=== PATIENT | female | born 1990 | race Two or more races ===

== ENCOUNTER 2018-11-19 00:22 | Emergency (ER) | payer BC ==
[2018-11-19 00:30] VITALS: BP 122/73
[2018-11-19] MEDS ORDERED: ONDANSETRON HCL INJ/PF 4 MG/2 ML SDV IV ONE (01:18)
[2018-11-19] MEDS ORDERED: MORPHINE SULFATE 10 MG/ML INJ IV ONE (01:18)
[2018-11-19] MEDS ORDERED: NORMAL SALINE 500 ML IV ONE (01:18)
--- NOTE | 2018-11-19 01:22 | ER Document Report ---
ED General - General Chief Complaint: Epigastric Pain Stated Complaint: STOMACH PAIN Time Seen by Provider: 11/19/18 01:12 Primary Care Provider: ESCOBAR HERNANDEZ MD [ACTIVE STAFF] - Follow up in 3-5 days Notes: Patient is a 28-year-old female presents with complaint of sudden onset severe epigastric pain approximately 20 minutes arrival to the ER. She never had anything like this before. She vomited twice. No blood in her emesis. No diarrhea. No history of similar pains in the past. No history of abdominal s urgeries. No alcohol use last 48 hours. She does not take any medications and is otherwise healthy. No medical allergies. Nothing makes the pain better or worse. The only thing she had eaten tonight was a bowl of cereal. TRAVEL OUTSIDE OF THE [place] IN LAST 30 DAYS: No - Related Data Allergies/Adverse Reactions: No Known Allergies Allergy (Unverified 09/12/13 11:48) Past Medical History - Social History Smoking Status: Never Smoker Frequency of alcohol use: None Drug Abuse: None Family History: Reviewed & Not Pertinent Review of Systems - Review of Systems Notes: My Normal Review Basic REVIEW OF SYSTEMS: CONSTITUTIONAL : Denies fever, chills, or sweats. Denies recent illness. Cardiovascular: No chest pain RESPIRATORY: Denies cough, cold, or chest congestion. Denies shortness of breath, difficulty breathing, or wheezing. GASTROINTESTINAL: Epigastric abdominal pain. Has vomiting. Denies constipati on. GENITOURINARY: Denies difficulty urinating, painful urination, burning, frequency, or blood in urine. MUSCULOSKELETAL: Denies neck or back pain or joint pain or swelling. SKIN: Denies rash or skin lesions. ALL OTHER SYSTEMS REVIEWED AND NEGATIVE. Physical Exam - Vital signs Vitals: Temp Pulse Resp BP Pulse Ox 97.8 F 71 22 H 122/73 99 11/19/18 00:27 11/19/18 00:27 11/19/18 00:27 11/19/18 00:11/19/18 00:27 - Notes Notes: General Appearance: Well nourished, alert, cooperative, no acute distress, mild obvious discomfort. Vitals: reviewed, See vital signs table. Eyes: PERRL, EOMI, Conjuctiva clear Lungs: No wheezing, No rales, No rhonci, No accessory muscle use, good air exchange bilaterally. Heart: Normal rate, Regular rythm, No murmur, no rub Abdomen: Normal BS, soft, No rigidity, and epigastric pain to palpation. Her abdomen is nontender., No guarding, no rebound, no abdominal masses, no organomegaly Extremities: good pulses in all extremities Neuro: speech clear, oriented x 3, normal affect, responds appropriately to questions. Course - Re-evaluation Re-evalutation: 11/19/18 03:14 I spoke patient's pain is either related to biliary colic or related to gastritis. I will have her start taking Pepcid and avoid coffee. She does have some gallstones on ultrasound. There is no evidence of inflammation or infection of the gallbladder on ultrasound. No evidence of obstruction. She had very slight elevation in AST and ALT which could be due to the be related to her having a fatty liver on ultrasound. I explained this to her informed her that she does have fatty liver recommend weight loss. Patient agreeable with this. I talked to her and informed her that she does have gallstones and this could be causing her pain however she does not require emergent cholecystectomy at this time. Her pain is improved and she looks well at this time. I informed her that she should follow-up with surgery clinic regards for further work-up and potential elective removal of her gallbladder. Patient is agreeable to this. I encouraged her return to ER anytime if she has worsening recurrent pain, intractable vomiting, fevers, or feels unwell in any way. Jennifer ent agrees with plan and will be discharged home. Dictation of this chart was performed using voice recognition software; therefore, there may be some unintended grammatical errors. - Vital Signs Vital signs: Temp Pulse Resp BP Pulse Ox 97.8 F 71 22 H 122/73 99 11/19/18 00:27 11/19/18 00:27 11/19/18 00:27 11/19/18 00:27 11/19/18 00:27 - Laboratory Result Diagrams: 11/19/18 01:50 11/19/18 01:50 Laboratory results interpreted by me: 11/19/18 11/19/18 01:50 01:50 WBC 12.9 H Seg Neutrophils % 81.7 H Lymphocytes % 12.4 L Absolute Neutrophils 10.6 H AST 67 H ALT 56 H Discharge - Discharge Clinical Impression: Abdominal pain Qualifiers: Abdominal location: epigastric Qualified Code(s): R10.13 - Epigastric pain Cholelithiasis Qualifiers: Cholelithiasis location: gallbladder Cholecystitis presence: without cholecystitis Biliary obstruction: without biliary obstruction Qualified Code(s): K80.20 - Calculus of gallbladder without cholecystitis without obstruction Condition: Good Disposition: HOME, SELF-CARE Additional Instructions: Your ultrasound of the gallbladder did show some stones in gallbladder. There is no evidence of infection or inflammation of the gallbladder at this time. There is no evidence of obstruction of the gallbladder. You therefore do not need it emergently taken out however you should follow-up with the surgery clinic for further evaluation to determine it needs to be taken out electively. Please call the surgery clinic. The number for the surgery clinic is under the name Escobar Hernandez in your discharge paperwork. Please still have a low threshold to return to the ER if you having recurring pains, intractable vomiting, fevers, or if you feel that you are worsening the way. Please avoid all fatty and fried foods. Please take [id number] medicine such as Pepcid to help reduce the amount of acid in your stomach. Please avoid coffee and NSAID medications such as ibuprofen, Motrin, Aleve, Advil. It is safe to take Tylenol. Referrals: ESCOBAR HERNANDEZ MD [ACTIVE STAFF] - Follow up in 3-5 days
[2018-11-19 02:01] LABS: ABSOLUTE EOSINOPHILS # (AUTO) 0.1 10^3/uL (0.0-0.6); ABSOLUTE LYMPHOCYTES (AUTO) 1.6 10^3/uL (0.5-4.7); ABSOLUTE MONOCYTES (AUTO) 0.6 10^3/uL (0.1-1.4); ABSOLUTE NEUT (AUTO) 10.6 10^3/uL (1.7-8.2); BASOPHILS % (AUTO) 0.3 % (0-2); EOSINOPHILS % (AUTO) 0.9 % (0-6); HEMATOCRIT 37.6 % (36.0-47.0); HEMOGLOBIN 12.7 g/dL (12.0-15.5); LYMPHOCYTES % (AUTO) 12.4 % (13-45); MEAN CORPUSCULAR HEMOGLOBIN 28.9 pg (27.0-33.4); MEAN CORPUSCULAR HGB CONC 33.8 g/dL (32.0-36.0); MEAN CORPUSCULAR VOLUME 86 fl (80-97); MONOCYTES % (AUTO) 4.7 % (3-13); PLATELET COUNT 233 10^3/uL (150-450); RED CELL DISTRIBUTION WIDTH 13.3 % (11.5-14.0); SEGMENTED NEUTROPHILS % (AUTO) 81.7 % (42-78); TOTAL CELLS COUNTED % (AUTO) 100 %; WHITE BLOOD COUNT 12.9 10^3/uL (4.0-10.5)
[2018-11-19 02:18] LABS: ALANINE AMINOTRANSFERASE 56 U/L (9-52); ALBUMIN 3.9 g/dL (3.5-5.0); ALKALINE PHOSPHATASE 75 U/L (38-126); ANION GAP 9 (5-19); ASPARTATE AMINO TRANSFERASE 67 U/L (14-36); BILIRUBIN,DIRECT 0.2 mg/dL (0.0-0.4); BILIRUBIN,TOTAL 0.2 mg/dL (0.2-1.3); BLOOD UREA NITROGEN 14 mg/dL (7-20); CALCIUM 9.1 mg/dL (8.4-10.2); CARBON DIOXIDE 29 mmol/L (22-30); CHLORIDE 105 mmol/L (98-107); GLUCOSE 106 mg/dL (75-110); POTASSIUM 4.1 mmol/L (3.6-5.0); SODIUM 142.6 mmol/L (137-145)
--- NOTE | 2018-11-19 02:55 | RADIOLOGY REPORT (SQ) ---
EXAM DESCRIPTION: US ABDOMEN DOPPLER LIMITED COMPLETED DATE/TME: 11/19/2018 01:17 CLINICAL HISTORY: 28 years Female, epigastric pain. Do RUQ ultrasound Comparison: None. LIMITATIONS: None. FINDINGS: Cholelithiasis, negative sonographic Cadena's test, moderate hepatic steatosis, a 0.3-cm diameter common bile duct, no intrahepatic ductal dilation, hepatopetal patent flow of the portal vein, 11-cm right kidney, partially obscured pancreas, visualized vasculature/abdominal aorta, and no significant ascites appear otherwise unremarkable. IMPRESSION: No acute findings. Cholelithiasis. Hepatic steatosis.
[2018-11-19] MEDS ORDERED: ONDANSETRON ODT 4 MG TAB (6 TAB/ER DISP) PO PRN (03:13)
== END 2018-11-19 03:48 | disposition home or self-care (01) ==
LOC: ER 00:22
DX: K80.20 Calculus of gallbladder without cholecystitis without obstruction (principal); R10.13 Epigastric pain; R11.10 Vomiting, unspecified
CPT/HCPCS: 99284; 96374; 96375; 36415; 83690; 85025; 80053; 76705; 93976; J2270; J2405; J7040

== ENCOUNTER 2019-03-22 22:24 | Emergency (ER) | payer BC ==
[2019-03-22] MEDS ORDERED: ONDANSETRON 4 MG TAB.RAPDIS PO ONE (22:47)
[2019-03-22] MEDS ORDERED: KETOROLAC TROMETHAMINE 60 MG/2 ML SDV IM ONE (22:47)
--- NOTE | 2019-03-22 22:49 | ER Document Report ---
ED Medical Screen (RME) - General Chief Complaint: Epigastric Pain Stated Complaint: UPPER GASTRIC PAIN Time Seen by Provider: 03/22/19 22:45 Mode of Arrival: Ambulatory Information source: Patient Notes: 29-year-old female presents emergency department with complaints of epigastric pain back pain. Reports started after she had a sandwich and a beer earlier today.. Reports she was evaluated in the past for gallstones. She did follow- up with surgeon but they thought the gallstones were brought on by her diet medication she was taking at that time. Patient reports she quit taking it quit having the symptoms. No complaints of fever or diarrhea. Patient reports she is currently on her menses and has Implanon, denies . Dictation of this chart was performed using voice recognition software; therefore, there may be some unintended grammatical errors. I have greeted and performed a rapid initial assessment of this patient. A comprehensive ED assessment and evaluation of the patient, analysis of test results and completion of the medical decision making process will be conducted by additional ED providers. TRAVEL OUTSIDE OF THE [place] IN LAST 30 DAYS: No - Related Data Allergies/Adverse Reactions: No Known Allergies Allergy (Unverified 09/12/13 11:48) Past Medical History Renal/ Medical History: Denies: Hx Peritoneal Dialysis Physical Exam - Vital signs Vitals: Temp Pulse Resp BP Pulse Ox 98.1 F 88 16 135/71 H 100 03/22/19 22:30 03/22/19 22:30 03/22/19 22:30 03/22/19 22:30 03/22/19 22:30 Course - Vital Signs Vital signs: Temp Pulse Resp BP Pulse Ox 98.1 F 88 16 135/71 H 100 03/22/19 22:30 03/22/19 22:30 03/22/19 22:30 03/22/19 22:30 03/22/19 22:30
[2019-03-22 23:13] LABS: ABSOLUTE EOSINOPHILS # (AUTO) 0.2 10^3/uL (0.0-0.6); ABSOLUTE LYMPHOCYTES (AUTO) 2.1 10^3/uL (0.5-4.7); ABSOLUTE MONOCYTES (AUTO) 0.8 10^3/uL (0.1-1.4); ABSOLUTE NEUT (AUTO) 8.7 10^3/uL (1.7-8.2); BASOPHILS % (AUTO) 0.4 % (0-2); EOSINOPHILS % (AUTO) 2.1 % (0-6); HEMATOCRIT 39.7 % (36.0-47.0); HEMOGLOBIN 13.2 g/dL (12.0-15.5); LYMPHOCYTES % (AUTO) 17.7 % (13-45); MEAN CORPUSCULAR HEMOGLOBIN 28.3 pg (27.0-33.4); MEAN CORPUSCULAR HGB CONC 33.2 g/dL (32.0-36.0); MEAN CORPUSCULAR VOLUME 85 fl (80-97); MONOCYTES % (AUTO) 6.4 % (3-13); PLATELET COUNT 281 10^3/uL (150-450); RED BLOOD COUNT 4.67 10^6/uL (3.72-5.28); RED CELL DISTRIBUTION WIDTH 13.5 % (11.5-14.0); SEGMENTED NEUTROPHILS % (AUTO) 73.4 % (42-78); TOTAL CELLS COUNTED % (AUTO) 100 %; WHITE BLOOD COUNT 11.9 10^3/uL (4.0-10.5)
[2019-03-22 23:16] LABS: APPEARANCE,URINE SLIGHTLY-CLOUDY; BILIRUBIN,URINE NEGATIVE (NEGATIVE); COLOR,URINE YELLOW; GLUCOSE, URINE NEGATIVE (NEGATIVE); KETONES,URINE NEGATIVE (NEGATIVE); LEUKOCYTE ESTERASE,URINE NEGATIVE (NEGATIVE); NITRITE,URINE NEGATIVE (NEGATIVE); PROTEIN,URINE NEGATIVE (NEGATIVE); URINE SPECIFIC GRAVITY 1.026
[2019-03-22 23:27] LABS: ALBUMIN 4.4 g/dL (3.5-5.0); ALKALINE PHOSPHATASE 82 U/L (38-126); ANION GAP 11 (5-19); ASPARTATE AMINO TRANSFERASE 42 U/L (14-36); BILIRUBIN,DIRECT 0.2 mg/dL (0.0-0.4); BILIRUBIN,TOTAL 0.2 mg/dL (0.2-1.3); BLOOD UREA NITROGEN 13 mg/dL (7-20); CALCIUM 9.3 mg/dL (8.4-10.2); CARBON DIOXIDE 29 mmol/L (22-30); CHLORIDE 100 mmol/L (98-107); GLUCOSE 119 mg/dL (75-110); POTASSIUM 4.1 mmol/L (3.6-5.0)
--- NOTE | 2019-03-22 23:53 | RADIOLOGY REPORT (SQ) ---
EXAM DESCRIPTION: US ABDOMEN LIMITED COMPLETED DATE/TME: 03/22/2019 22:47 CLINICAL HISTORY: 29 years, Female, epigastric back pain COMPARISON: Prior study from 11/19/2018 TECHNIQUE: Axial 2-D grayscale images of the abdomen were obtained. Doppler was utilized. LIMITATIONS: None. FINDINGS: Visualized portions of the pancreas appear normal in echogenicity. Abdominal aortic measurements are as follows: Proximal: 2.2 cm Mid: 2.3 cm Distal: 2.0 cm Visualized portions of the IVC appear normal. The liver is diffusely echogenic. It measures 20.6 cm in length. Antegrade flow is documented within the main portal vein. Gallbladder wall thickness measures 2 mm. Gallstones are noted. Sonographic Cadena sign was negative. Common bile duct and measures 5 mm. Right kidney measures 11.3 cm in length. No hydronephrosis. IMPRESSION: Cholelithiasis without sonographic evidence of acute cholecystitis. Echogenic liver, suggestive of hepatic steatosis. copyright 2010 [employer]- All Rights Reserved
--- NOTE | 2019-03-23 02:16 | ER Document Report ---
ED GI/ - General Chief Complaint: Epigastric Pain Stated Complaint: UPPER GASTRIC PAIN Time Seen by Provider: 03/22/19 22:45 Primary Care Provider: [facility] [Provider Group] - 03/25/19 Mode of Arrival: Ambulatory Notes: Patient is a 29-year-old female that comes emergency department for chief complaint of sharp pain in the upper abdomen after eating dinner along with a episode of vomiting. She states that she was seen in the past and referred to general surgery because she had known gallstones. She states now the pain is actually completely resolved and she has no current symptoms. She denies fever/chills. She states that she is only had one other episode like this in the past. She denies , history of abdominal surgery, daily medications. TRAVEL OUTSIDE OF THE [place] IN LAST 30 DAYS: No - Related Data Allergies/Adverse Reactions: No Known Allergies Allergy (Unverified 09/12/13 11:48) Past Medical History - General Information source: Patient - Social History Smoking Status: Never Smoker Frequency of alcohol use: None Drug Abuse: None Lives with: Family Family History: Reviewed & Not Pertinent Patient has suicidal ideation: No Patient has homicidal ideation: No Renal/ Medical History: Denies: Hx Peritoneal Dialysis Surgical Hx: Negative - Immunizations Immunizations up to date: Yes Hx Diphtheria, Pertussis, Tetanus Vaccination: Yes Review of Systems - Review of Systems Constitutional: No symptoms reported EENT: No symptoms reported Cardiovascular: No symptoms reported Respiratory: No symptoms reported Gastrointestinal: See HPI Genitourinary: No symptoms reported Female Genitourinary: No symptoms reported Musculoskeletal: No symptoms reported Skin: No symptoms reported Hematologic/Lymphatic: No symptoms reported Neurological/Psychological: No symptoms reported Physical Exam - Vital signs Vitals: Temp Pulse Resp BP Pulse Ox 98.1 F 88 16 135/71 H 100 03/22/19 22:30 03/22/19 22:30 03/22/19 22:30 03/22/19 22:30 03/22/19 22:30 - Notes Notes: GENERAL: Alert, interacts well. No acute distress. HEAD: Normocephalic, atraumatic. EYES: Pupils equal, round, and reactive to light. Extraocular movements intact. ENT: Oral mucosa moist, tongue midline. Oropharynx unremarkable. Airway patent. NECK: Full range of motion. Supple. Trachea midline. LUNGS: Clear to auscultation bilaterally, no wheezes, rales, or rhonchi. No respiratory distress. HEART: Regular rate and rhythm. No murmur ABDOMEN: Soft, non-tender. Non-distended. Bowel sounds present in all 4 quadrants. GENITOURINARY: Deferred EXTREMITIES: Moves all 4 extremities spontaneously. No edema, normal radial and dorsalis pedis pulses bilaterally. No cyanosis. BACK: no cervical, thoracic, lumbar midline tenderness. No saddle anesthesia, normal distal neurovascular exam. Moves all extremities in full range of motion. NEUROLOGICAL: Alert and oriented x3. Normal speech. Cranial nerves II through XII grossly intact. PSYCH: Normal affect, normal mood. SKIN: Warm, dry, normal turgor. No rashes or lesions noted. Course - Re-evaluation Re-evalutation: Patient states she was seen in the office although I do not see a visit listed to the surgical clinic. She states that she has not been scheduled for surgery yet. She does have gallstones on the ultrasound today but no pericholecystic fluid or obstructive findings. CBC shows mild leukocytosis which is nonspecific given her vomiting, also nonspecific given she has a completely nontender abdomen. She has no current symptoms. Lipase unremarkable, chemistry unremark able, urinalysis shows some blood but patient states she is currently on her menstrual cycle and I suspect there is a contamination component. Patient does not have flank pain. I discussed with patient. Patient states she is interested in staying and having surgery because of her repeat symptoms. I did discuss with Dr. Chandler, general surgeon, he states he is willing to accept the patient but he does advise that because there is a long list of patients waiting for the operating room that patient might have an extended wait. I did provide this detail with patient and she states that she will instead take medication for symptom management and follow-up with the surgical clinic as her preferred option. Patient is able to tolerate p.o. now without any difficulty. She was provided with symptom management in case she has this, I did discuss return precautions. Dr. Chandler was updated. - Vital Signs Vital signs: Temp Pulse Resp BP Pulse Ox 98.3 F 73 16 119/66 100 03/23/19 02:41 03/23/19 02:41 03/22/19 22:30 03/23/19 02:41 03/23/19 02:41 - Laboratory Result Diagrams: 03/22/19 23:00 03/22/19 23:00 Laboratory results interpreted by me: 03/22/19 03/22/19 03/22/19 23:00 23:00 23:00 WBC 11.9 H Absolute Neuts (auto) 8.7 H Glucose 119 H AST 42 H Urine Blood LARGE H Urine Urobilinogen 2.0 H Discharge - Discharge Clinical Impression: Cholelithiasis Qualifiers: Cholelithiasis location: gallbladder Cholecystitis presence: without cholecystitis Biliary obstruction: without biliary obstruction Qualified Code(s): K80.20 - Calculus of gallbladder without cholecystitis without obstruction Condition: Stable Disposition: HOME, SELF-CARE Additional Instructions: You have gallstones but there is no sign of infection or obstruction at this time. I spoke with Dr. Geraldine houser. Please call the surgical clinic on Monday. Take the provided medication if needed for spasm/pain, take the nausea medication if needed, avoid fatty or greasy foods. Return if you worsen including uncontrolled vomiting, severe worsening pain, fever, or any other concerning symptoms. Prescriptions: Ketorolac Tromethamine [Toradol 10 mg Tablet] 10 mg PO Q8HP PRN #30 tablet PRN Reason: Ondansetron [Zofran Odt 4 mg Tablet] 1 - 2 tab PO Q4H PRN #15 tab.rapdis PRN Reason: For Nausea/Vomiting Referrals: [facility] [Provider Group] - 03/25/19
[2019-03-23] MEDS ORDERED: HYDROCODONE/ACETAMINOPHEN 5-325 MG (6 TAB/ER DISP) PO PRN (02:33)
[2019-03-23] MEDS ORDERED: ONDANSETRON ODT 4 MG TAB (6 TAB/ER DISP) PO PRN (02:34)
[2019-03-23 02:47] VITALS: BP 119/66
== END 2019-03-23 02:48 | disposition home or self-care (01) ==
LOC: ER 22:24
DX: K80.20 Calculus of gallbladder without cholecystitis without obstruction (principal); R10.13 Epigastric pain; R10.10 Upper abdominal pain, unspecified; R11.10 Vomiting, unspecified
CPT/HCPCS: 99284; 96374; 36415; 83690; 85025; 81025; 80053; 81001; 76705; J1885; S0119

== ENCOUNTER → 2019-03-27 | Outpatient (CLI) | payer BC ==
[2019-03-27 09:55] LABS: HEMATOCRIT 39.5 % (36.0-47.0); HEMOGLOBIN 13.5 g/dL (12.0-15.5); MEAN CORPUSCULAR HEMOGLOBIN 28.7 pg (27.0-33.4); MEAN CORPUSCULAR HGB CONC 34.1 g/dL (32.0-36.0); MEAN CORPUSCULAR VOLUME 84 fl (80-97); PLATELET COUNT 269 10^3/uL (150-450); RED CELL DISTRIBUTION WIDTH 13.2 % (11.5-14.0); WHITE BLOOD COUNT 7.1 10^3/uL (4.0-10.5)
[2019-03-27 10:25] LABS: ALBUMIN 4.4 g/dL (3.5-5.0); ALKALINE PHOSPHATASE 100 U/L (38-126); ANION GAP 8 (5-19); ASPARTATE AMINO TRANSFERASE 33 U/L (14-36); BILIRUBIN,DIRECT 0.2 mg/dL (0.0-0.4); BILIRUBIN,TOTAL 0.4 mg/dL (0.2-1.3); BLOOD UREA NITROGEN 11 mg/dL (7-20); CALCIUM 9.5 mg/dL (8.4-10.2); CARBON DIOXIDE 30 mmol/L (22-30); CHLORIDE 102 mmol/L (98-107); GLUCOSE 100 mg/dL (75-110); TOTAL PROTEIN 8.1 g/dL (6.3-8.2)
== END ==
LOC: OD 09:12
PROVIDERS: ATTEND Surgery
DX: Z01.818 Encounter for other preprocedural examination (principal); K80.20 Calculus of gallbladder without cholecystitis without obstruction; Z78.9 Other specified health status; E66.9 Obesity, unspecified
CPT/HCPCS: 36415; 80053; 85027

== ENCOUNTER 2019-04-08 08:28 | Day surgery (SDC) | payer BC ==
[2019-04-08] MEDS ORDERED: ACETAMINOPHEN 325 MG TABLET ONE (09:18)
[2019-04-08] MEDS ORDERED: CEFOXITIN SODIUM 2 GM in DEXTROSE 5%-WATER 100 ML IV PRN (09:19)
[2019-04-08] MEDS ORDERED: ACETAMINOPHEN 325 MG TABLET PO PRN (09:20)
[2019-04-08] MEDS ORDERED: IBUPROFEN 800 MG in NORMAL SALINE 250 ML IV PRN (09:20)
[2019-04-08] MEDS ORDERED: MIDAZOLAM 2 MG/2 ML INJ ONE (11:48)
[2019-04-08] MEDS ORDERED: FENTANYL CITRATE INJ/PF 100 MCG/2 ML AMPUL ONE ×2 (11:48→14:14)
[2019-04-08] MEDS ORDERED: PROPOFOL INJ 200 MG/20 ML VIAL IV ONE (11:49)
[2019-04-08] MEDS ORDERED: ONDANSETRON HCL INJ/PF 4 MG/2 ML SDV ONE (11:49)
[2019-04-08] MEDS ORDERED: BUPIVACAINE HCL 0.5 % INJ/PF 30 ML SDV ONE (12:02)
[2019-04-08] MEDS ORDERED: DIPHENHYDRAMINE HCL 50 MG/ML VIAL IV PRN (12:33)
[2019-04-08] MEDS ORDERED: FENTANYL CITRATE INJ/PF 100 MCG/2 ML AMPUL IV PRN ×3 (12:33)
[2019-04-08] MEDS ORDERED: PROMETHAZINE HCL INJ 25 MG/1 ML VIAL IV PRN (12:33)
[2019-04-08] MEDS ORDERED: MEPERIDINE HCL/PF INJ 25 MG/1 ML DISP.SYRIN IV PRN (12:33)
[2019-04-08] MEDS ORDERED: MORPHINE SULFATE 10 MG/ML INJ IV PRN (12:33)
[2019-04-08] MEDS ORDERED: HYDROCODONE/ACETAMINOPHEN 10-325 MG TABLET ONE (14:58)
[2019-04-08 16:21] VITALS: BP 126/74
--- NOTE | 2019-04-09 12:39 | Discharge Summary ---
Discharge Summary (SDC) - Discharge Final Diagnosis: symptomatic gallstones. Date of Surgery: 04/08/19 Discharge Date: 04/08/19 Condition: Stable Forms: ASU Anesthesia D/C Instruction, Discharge POC-Surgical Service Treatment or Instructions: TAKE PAIN MEDICATION DIRECTED MAY SHOWER IN 48 HOURS KEEP STERI-STRIPS INTACT DIET TOLERATED NO LIFTING OVER 10 POUNDS FOR THE NEXT 2 WEEKS FOLLOW UP DIRECTED BY YOUR MD Referrals: MARK ANTHONY MAYERS MD [ACTIVE STAFF] - 04/17/19 10:45 am Discharge Diet: As Tolerated Respiratory Treatments at Home: Deep Breathing/Coughing, Incentive Spirometer Discharge Activity: Balance Activity w/Rest, No Driving, No Lifting Over 10 Pounds, No Lifting/Push/Pulling Home Care Assistance: None Needed Report the Following to Your Physician Immediately: Shortness of Breath, Nausea, Vomiting, Increase in Pain, Fever over 101 Degrees, Unusual Bleeding, Redness, Swelling, Warmth, Increased Soreness, Drainage-Yellow, Drainage-Bolton, Drainage- Green, Drainage-Foul Smelling, Large Clots, Numbness, Tingling Sensation, Wheezing, Seizure, IV Site Infection Signs
--- NOTE | 2019-04-09 12:43 | Operative Report ---
Nonrecallable Operative Report DATE OF SURGERY: 04/08/19 PREOPERATIVE DIAGNOSIS: Symptomatic cholelithiasis POSTOPERATIVE DIAGNOSIS: Same as above OPERATION: Laparoscopic cholecystectomy SURGEON: MARK ANTHONY MAYERS 1ST RADIATION CONTROL SPECIALIST: MALLORY PAYAN ANESTHESIA: GA TISSUE REMOVED OR ALTERED: Gallbladder COMPLICATIONS: None apparent ESTIMATED BLOOD LOSS: Minimal PROCEDURE: Drains/implants: None. Procedure in detail: After informed consent was obtained, the patient was brought to the operating room and laid in the supine position. The area of the abdomen was prepped and draped in a normal sterile fashion. A supraumbilical incision was created with a 15 blade scalpel. Dissection was carried through the subcutaneous tissue using sharp and blunt dissection. The cicatrix was identified, grasped with a Janet clamp, and retracted upwards. The linea alba fascia was incised sharply, the abdomen was entered sharply. The balloon trocar was inserted, and pneumoperitoneum was achieved. A subxiphoid 5 mm port was placed under direct laparoscopic visualization. 2 more 5 mm ports were placed in the right upper quadrant in similar fashion. Atraumatic graspers were placed through the 5 mm ports. The gallbladder was retracted cephalad and laterally. Dissection was begun in the triangle of Calot. The cystic duct and cystic artery were fully visualized and skeletonized, seeing the liver through the triangle. Once the critical view of safety was obtained, the cystic duct and cystic artery were clipped and cut with laparoscopic instruments. The gallbladder was then removed from the liver using Bovie electrocautery. The gallbladder was perforated upon its removal. Once the gallbladder was removed, it was placed into an Endo Catch bag and pulled out to the umbilicus. The camera was reinserted. The hilum was inspected. The abdomen was copiously irrigated and suctioned until the effluent was clear. The hilum was then found to be free of any leakage of blood or bile. Once this was confirmed, the 5 mm trochars were removed under direct laparoscopic visualization. The supraumbilical trocar was removed, and pneumoperitoneum was relieved. The supraumbilical fascia was closed using 0 Vicryl suture in [id number] fashion. The overlying skin was closed using 4-0 Vicryl Rapide suture in subcuticular fashion. Dressings were placed, and the procedure was concluded. All sponge, instrument, and needle counts were correct x2. Condition: Stable. Mallory Payan PA-C was scrubbed and present the entirety the procedure. She assisted with all portions of the procedure including placement of the trochars, manipulation of the gallbladder, removal of the gallbladder, closure of the fascia, and closure of the skin.
== END 2019-04-08 16:10 | disposition home or self-care (01) ==
LOC: OROUT 08:28
PROVIDERS: ATTEND Surgery
DX: K80.10 Calculus of gallbladder with chronic cholecystitis without obstruction (principal)
CPT/HCPCS: 81025; 88304 ×2; 47562; J2250; J3490; J3010; J2405; J7060; J7050; J2704; J1741; J0694; 790